=== PATIENT | female | born 1985 | race African-American/Black ===

== ENCOUNTER 2020-04-01 19:50 | Emergency (ER) | payer MEDICAID, OTHER | END 2020-04-01 20:58 | disposition left against medical advice (07) | LOC: ER 19:50 | DX: Z53.21 Procedure and treatment not carried out due to patient leaving prior to being seen by health care provider (principal) ==

== ENCOUNTER 2022-12-05 20:46 | Emergency (ER) | payer MEDICAID, OTHER ==
[~2022-12-05] VITALS: Ht 165.1 cm; Wt 69.0 kg
[2022-12-05 20:49] VITALS: BP 130/84
== END 2022-12-05 23:15 | disposition home or self-care (01) ==
LOC: ER 20:46
DX: R51.9 Headache, unspecified (principal); M25.572 Pain in left ankle and joints of left foot; M25.571 Pain in right ankle and joints of right foot; F99 Mental disorder, not otherwise specified; Z59.00 Homelessness unspecified; Z88.1 Allergy status to other antibiotic agents
CPT/HCPCS: 99283

== ENCOUNTER 2024-09-24 06:41 | Emergency (ER) | payer MEDICAID ==
[~2024-09-24] VITALS: Ht 165.1 cm; Wt 55.0 kg
[2024-09-24 06:51] VITALS: O2SAT 100
[2024-09-24] MEDS ORDERED: IBUPROFEN 600MG TABLET PO STA (06:55)
[2024-09-24 07:34] LABS: CHLORIDE 105 mEq/L (98-107); POTASSIUM 4.1 mEq/L (3.5-5.1); SODIUM 138 mEq/L (136-145)
[2024-09-24 07:35] LABS: CALCIUM 9.6 mg/dL (8.7-10.4); CARBON DIOXIDE 25 mEq/L (21-32)
[2024-09-24 07:36] LABS: INR 1.1
[2024-09-24 07:40] LABS: CREATININE 0.7 mg/dL (0.6-1.0); GLUCOSE 87 mg/dL (70-105); UREA NITROGEN BLOOD 9 mg/dL (9-23)
[2024-09-24 07:45] LABS: TROPONIN I HIGH SENSITIVITY < 4 ng/L (3.0-34)
[2024-09-24 07:53] LABS: EOSINOPHILS % 1.5 % (0.0-5.0); HEMATOCRIT. 38.2 % (36.0-48.0); HEMOGLOBIN. 12.5 g/dL (12.0-16.0); LYMPHOCYTES % 54.5 % (20.0-50.0); MEAN CORPUSCULAR HEMOGLOBIN 30.7 pg (28.0-32.0); MEAN CORPUSCULAR HGB CONC 32.7 g/dL (31.0-37.0); MEAN CORPUSCULAR VOLUME 93.8 fL (81.0-99.0); MEAN PLATELET VOLUME 6.5 fl (7.4-10.4); MONOCYTES % 7.8 % (2.0-8.0); NEUTROPHILS % 35.2 % (40.0-76.0); PLATELET 434 x1000/uL (130-400); RED BLOOD CELL COUNT 4.07 mill/uL (4.2-5.4); RED CELL DISTRIBUTION WIDTH 14.7 % (11.6-14.6); WHITE BLOOD COUNT 5.6 x1000/uL (4.5-11.0)
[2024-09-24] MEDS ORDERED: CIPHCO RIGHT EAR (08:23)
[2024-09-24] MEDS: IBUPROFEN 600MG TABLET PO NR (10:11)
[2024-09-24 10:12] VITALS: BP 132/77; PULSE 90; RESP 16; TEMP 36.83628; O2SAT 100
== END 2024-09-24 11:41 | disposition home or self-care (01) ==
LOC: ER 06:41
DX: H60.91 Unspecified otitis externa, right ear (principal); R07.89 Other chest pain; D64.9 Anemia, unspecified; Z88.0 Allergy status to penicillin
CPT/HCPCS: 36415; 80048; 84484; 85025; 93005; 99284

== ENCOUNTER 2024-11-26 07:43 | Emergency (ER) | payer MEDICAID ==
[~2024-11-26] VITALS: Ht 165.1 cm; Wt 65.0 kg
[~2024-11-26 07:43] MED LIST: CIPHCO RIGHT EAR
[2024-11-26 07:46] VITALS: BP 119/64; PULSE 100; RESP 16; TEMP 37.2; O2SAT 89
[2024-11-26] MEDS ORDERED: HYDR99LO MT (10:00)
[2024-11-26] MEDS ORDERED: DIPH25TA62 MT (11:45)
[2024-11-26] MEDS ORDERED: P50 MT (11:45)
== END 2024-11-26 14:00 | disposition home or self-care (01) ==
LOC: ER 07:43
DX: F10.129 Alcohol abuse with intoxication, unspecified (principal); D64.9 Anemia, unspecified; R21 Rash and other nonspecific skin eruption; Z88.0 Allergy status to penicillin; Z79.899 Other long term (current) drug therapy; Y90.9 Presence of alcohol in blood, level not specified
CPT/HCPCS: 99283